=== PATIENT | female | born 1935 | race Two or more races ===

== ENCOUNTER 2016-06-07 19:13 | Emergency (ER) | payer MEDICARE, OTHER ==
[~2016-06-07] VITALS: Ht 165.1 cm; Wt 57.1 kg
[~2016-06-07 19:13] MED LIST: D-ME118S6 PO; PRED20TA PO
[2016-06-07 19:33] VITALS: Ht 165.1 cm; Wt 57.1 kg
[2016-06-07 22:47] LABS: ADD SCAN DIFF NO
[2016-06-07 22:51] LABS: BASOPHIL # 0.1 10^3/ul (0.0-0.1); BASOPHILS % 0.7 % (0.0-2.0); EOSINOPHILS # 0.2 10^3/ul (0.0-0.5); EOSINOPHILS % 1.8 % (0.0-7.0); HEMATOCRIT 40.8 % (37.0-47.0); HEMOGLOBIN 13.6 g/dl (12.0-16.0); LYMPHOCYTES # 2.5 10^3/ul (0.8-2.9); LYMPHOCYTES % 28.7 % (15.0-51.0); MEAN CORPUSCULAR HEMOGLOBIN 30.8 pg (29.0-33.0); MEAN CORPUSCULAR HGB CONC 33.3 g/dl (32.0-37.0); MEAN CORPUSCULAR VOLUME 92.5 fl (82.0-101.0); MEAN PLATELET VOLUME 10.4 fl (7.4-10.4); MONOCYTE # 0.8 10^3/ul (0.3-0.9); MONOCYTES % 8.5 % (0.0-11.0); NEUTROPHIL # 5.3 10^3/ul (1.6-7.5); NEUTROPHILS % 59.8 % (39.0-77.0); PLATELET COUNT 231 10^3/UL (140-415); RED BLOOD COUNT 4.41 10^6/ul (4.20-5.40); RED CELL DISTRIBUTION WIDTH 12.5 % (11.5-14.5); WHITE BLOOD COUNT 8.8 10^3/ul (4.8-10.8)
[2016-06-07 22:54] LABS: ADD UMIC YES; URINE BILIRUBIN (Dip) NEGATIVE (NEGATIVE); URINE BLOOD (Dip) NEGATIVE (NEGATIVE); URINE COLOR LT. YELLOW (YELLOW); URINE GLUCOSE (Dip) NEGATIVE (NEGATIVE); URINE KETONES (Dip) NEGATIVE (NEGATIVE); URINE LEUKOCYTE ESTERASE (Dip) TRACE (NEGATIVE); URINE NITRITE (Dip) NEGATIVE (NEGATIVE); URINE TOTAL PROTEIN (Dip) NEGATIVE (NEGATIVE); URINE UROBILINOGEN (Dip) 0.2 E.U./dL (0.1-1.0)
--- NOTE | 2016-06-07 22:59 | RADRPT ---
PROCEDURE: XR Chest. CLINICAL INDICATION: Cough. TECHNIQUE: Portable AP upright view of the chest was obtained. COMPARISON: 06/20/2015 FINDINGS: The cardiomediastinal silhouette is within upper normal limits. Calcifications of the right lower h emithorax are again noted possibly chronic granulomatous disease plaques, no acute infiltrate is pre sent. There is no evidence for pleural effusion, pneumothorax or pulmonary vascular congestion. De mineralization is again noted without evidence of acute osseous abnormality. Calcification is again visible within the aortic arch. RPTAT:HJJR IMPRESSION: 1. Stable calcifications of the right lower lobe region possibly chronic granulomatous disease or c alcified pleural plaques. 2. No evidence of pneumonia or new intrathoracic abnormality, the appearance of the chest unchanged from 06/20/2015 when allowing for technical differences. 3. Aortic atherosclerosis is present. Physician August Date Time Electronically viewed and signed by Physician August on 06/07/2016 22:59 JR/
[2016-06-07 23:03] LABS: SQUAMOUS EPITHELIAL CELL,UR FEW; URINE RBCS 0-2 /HPF (0)
[2016-06-07] MEDS ORDERED: ALBUTEROL 0.5% (NEB) 2.5 MG/0.5 ML AMP NEB ONE (23:07)
[2016-06-07 23:08] LABS: ALBUMIN 4.1 g/dl (3.3-4.9); POTASSIUM 4.1 mmol/L (3.5-5.1)
[2016-06-07] MEDS ORDERED: METHYLPREDNISOLONE 125 MG INJ IV ONE (23:08)
[2016-06-07] MEDS ORDERED: IPRATROPIUM (NEB) 0.5 MG/2.5 ML AMP NEB ONE (23:08)
[2016-06-07 23:11] LABS: ALBUMIN/GLOBULIN RATIO 0.95; BILIRUBIN,INDIRECT 0.1 mg/dl (0-1.1); BILIRUBIN,TOTAL 0.1 mg/dl (0.2-1.3); CALCIUM 9.5 mg/dl (8.4-10.2); CREATININE 0.62 mg/dl (0.44-1.00); TOTAL PROTEIN 8.4 g/dl (6.1-8.1)
[2016-06-07] MEDS ORDERED: KETOROLAC 15 MG INJ IV STA (23:49)
[2016-06-08 00:03] VITALS: BP 149/73; PULSE 81; RESP 16
[2016-06-08] MEDS ORDERED: ALBU18HF INHALATION (00:07)
[2016-06-08] MEDS ORDERED: AZIT250T94 PO (00:07)
[2016-06-08] MEDS ORDERED: PRED20TA PO (00:07)
--- NOTE | 2016-06-08 00:17 | ERD ---
ER Documentation Chief Complaint Date/Time DATE: 06/08/16 TIME: 00:16 Chief Complaint LEFT UPPER BACK PAIN X 1 WEEK WITH COUGH AND CHEST WALL PAIN WITH INSPIRATI HPI This is an 80-year-old female who comes in with left upper back pain with 1 week with cough. Patient is also been noted to be wheezing. No nausea no vomiting no fevers no chills. No other current complaints. Pain is mild in intensity. No exacerbating or remitting factors. No other current issues ROS All systems reviewed and are negative except as per history of present illness. Medications Home Meds Active Scripts Azithromycin* (Zithromax*) 250 Mg Tablet, 250 MG PO .ZPACK DIRECTED, #6 TAB TAKE 500 MG (2 TABS) THE FIRST DAY THEN 250 MG (1 TAB) DAYS 2-5 Prov:JORDAN ANGELES 06/08/16 Albuterol Sulfate* (Ventolin HFA*) 18 Gm Hfa.aer.ad, 2 PUFF INHALATION Q4H, #1 INHALER Prov:JORDAN ANGELES 06/08/16 Prednisone* (Prednisone*) 20 Mg Tab, 40 MG PO DAILY for 4 Days, TAB Prov:JORDAN ANGELES. 06/08/16 Discontinued Scripts Dextromethorphan Hb-Promethazine Hcl (Promethazine DM Syrup) 180 Ml Syrup, 5 ML PO Q6H Y for COUGH, #4 OZ Prov:MÓNICA BARRIGA DO 06/20/15 Prednisone* (Prednisone*) 20 Mg Tab, 40 MG PO DAILY for 4 Days, TAB Prov:MÓNICA BARRIGA DO 06/20/15 Allergies Allergies: Coded Allergies: No Known Allergy (Unverified , 06/07/16) PMhx/Soc Medical and Surgical Hx: pt denies Medical Hx, pt denies Surgical Hx History of Surgery: No Anesthesia Reaction: No Hx Neurological Disorder: No Hx Respiratory Disorders: No Hx Cardiac Disorders: No Hx Psychiatric Problems: No Hx Miscellaneous Medical Probl: No Hx Alcohol Use: No Hx Substance Use: No Hx Tobacco Use: No Smoking Status: Never smoker Physical Exam Vitals Vital Signs Date Time Temp Pulse Resp B/P Pulse Ox O2 Delivery O2 Flow Rate FiO2 06/08/16 00:03 81 16 149/73 98 Room Air 2/28/17 23:33 68 20 97 21 06/07/16 19:33 98.9 95 24 123/70 95 Physical Exam Const: [] Head: Atraumatic Eyes: Normal Conjunctiva ENT: Normal External Ears, Nose and Mouth. Neck: Full range of motion..~ No meningismus. Resp: Clear to auscultation bilaterally Cardio: Regular rate and rhythm, no murmurs Abd: Soft, non tender, non distended. Normal bowel sounds Skin: No petechiae or rashes Back: No midline or flank tenderness Ext: No cyanosis, or edema Neur: Awake and alert Psych: Normal Mood and Affect Result Diagram: 06/07/16219906/07/162199 Results 24 hrs Laboratory Tests Test 06/07/16 22:00 06/07/16 22:15 Alanine Aminotransferase (ALT/SGPT) 24IU/L Albumin 4.1g/dl Albumin/Globulin Ratio 0.95 Alkaline Phosphatase 119IU/L Anion Gap 16 Aspartate Amino Transf (AST/SGOT) 32IU/L Basophils # 0.110^3/ul Basophils % 0.7% Blood Urea Nitrogen 13mg/dl Calcium Level 9.5mg/dl Carbon Dioxide Level 29mmol/L Chloride Level 103mmol/L Creatinine 0.62mg/dl Direct Bilirubin 0.00mg/dl Eosinophils # 0.210^3/ul Eosinophils % 1.8% Globulin 4.30g/dl Glucose Level 92mg/dl Hematocrit 40.8% Hemoglobin 13.6g/dl Indirect Bilirubin 0.1mg/dl Lymphocytes # 2.510^3/ul Lymphocytes % 28.7% Mean Corpuscular Hemoglobin 30.8pg Mean Corpuscular Hemoglobin Concent 33.3g/dl Mean Corpuscular Volume 92.5fl Mean Platelet Volume 10.4fl Monocytes # 0.810^3/ul Monocytes % 8.5% Neutrophils # 5.310^3/ul Neutrophils % 59.8% Nucleated Red Blood Cells # 0.010^3/ul Nucleated Red Blood Cells % 0.0/100WBC Platelet Count 66416^3/UL Potassium Level 4.1mmol/L Red Blood Count 4.4110^6/ul Red Cell Distribution Width 12.5% Sodium Level 144mmol/L Total Bilirubin 0.1mg/dl Total Protein 8.4g/dl White Blood Count 8.810^3/ul Urine Bilirubin NEGATIVE Urine Clarity CLEAR Urine Color LT. YELLOW Urine Glucose NEGATIVE% Urine Hemoglobin NEGATIVE Urine Ketones NEGATIVE Urine Leukocyte Esterase TRACE Urine Microscopic RBC 0-2/HPF Urine Microscopic WBC 0-2/HPF Urine Nitrite NEGATIVE Urine Specific [address] <=1.005 Urine Squamous Epithelial Cells FEW Urine Total Protein NEGATIVE Urine Urobilinogen 0.2 E.U./dL Urine pH 5.5 Current Medications Medications (Trade) Dose Ordered Sig/Gerald Route PRN Reason Start Time Stop Time Status Last Admin Dose Admin Albuterol (Proventil 0.5% (Neb)) 5 mg ONCE ONCE NEB 06/07/16 23:07 06/07/16 23:08 DC 06/07/16 23:33 Ipratropium [place] (Atrovent 0.02% (Neb)) 0.5 mg ONCE ONCE NEB 06/07/16 23:08 06/07/16 23:09 DC 06/07/16 23:33 Methylprednisolone Sodium Succinate (Solu-Medrol) 125 mg ONCE ONCE IV 06/07/16 23:08 06/07/16 23:09 DC 06/07/16 23:13 Ketorolac Tromethamine (Toradol) 15 mg ONCE STAT IV 06/07/16 23:49 06/07/16 23:50 DC 06/07/16 23:54 Procedures/MDM Chest X-ray 1V Interpreted by me: Soft Tissue: No acute abnormalities Bones: No acute abnormalities Mediastinum/Cardiac Silhouette/Lungs: [No acute abnormalities] Patient's respiratory status has stabilized while in the department and is appropriate for outpatient work up. Exam and work up not consistent w/ impending respiratory failure or cardiovascular collapse. Departure Diagnosis: Primary Impression: Asthmatic bronchitis with acute exacerbation Condition: Stable Patient Instructions: Bronchitis With Wheezing (Adult) JORDAN ANGELES Jun 08, 2016 00:17
== END 2016-06-08 00:13 | disposition home or self-care (01) ==
LOC: E/R 19:13
DX: J45.901 Unspecified asthma with (acute) exacerbation (principal)
CPT/HCPCS: 71010; 80053; 81001; 85025; 94664; 96374; 96375; 99284; J1885; J2930; 81003

== ENCOUNTER 2016-09-10 16:08 | Emergency (ER) | payer MEDICARE, OTHER ==
[~2016-09-10] VITALS: Ht 157.5 cm; Wt 57.5 kg
[~2016-09-10 16:08] MED LIST changes: +ALBU18HF INHALATION; +AZIT250T94 PO; -D-ME118S6 PO
[2016-09-10 16:26] VITALS: Ht 157.5 cm; Wt 57.5 kg
[2016-09-10] MEDS ORDERED: D-ME473S18 PO (19:03)
[2016-09-10] MEDS ORDERED: ACET500C5 PO (19:03)
[2016-09-10] MEDS ORDERED: AZIT250T94 PO (19:03)
--- NOTE | 2016-09-10 19:11 | ERD ---
ER Documentation Chief Complaint Date/Time DATE: 09/10/16 TIME: 19:10 Chief Complaint cough HPI This 80-year-old female presents with cough for the last 2 weeks. Her doctor did a PPD by history may have had a positive. Chest x-ray result is pending. She is here because she complains of a cough with slight production. She denies hemoptysis night sweats, chest pain, additional symptoms. ROS All systems reviewed and are negative except as per history of present illness. Medications Home Meds Active Scripts Acetaminophen* (Tylophen*) 500 Mg Capsule, 1 CAP PO Q6H Y for PAIN AND OR ELEVATED TEMP, #15 CAP Prov:AMARILIS ABDUL MD 09/10/16 Azithromycin* (Zithromax*) 250 Mg Tablet, 250 MG PO .ZPACK DIRECTED, #6 TAB TAKE 500 MG (2 TABS) THE FIRST DAY THEN 250 MG (1 TAB) DAYS 2-5 Prov:AMARILIS ABDUL MD 09/10/16 Dextromethorphan Hb-Promethazine Hcl (Promethazine DM Syrup) 473 Ml Syrup, 5 ML PO Q6H Y for COUGH, #4 OZ Prov:AMARILIS ABDUL MD 09/10/16 Azithromycin* (Zithromax*) 250 Mg Tablet, 250 MG PO .ZPACK DIRECTED, #6 TAB TAKE 500 MG (2 TABS) THE FIRST DAY THEN 250 MG (1 TAB) DAYS 2-5 Prov:JORDAN ANGELES 06/08/16 Albuterol Sulfate* (Ventolin HFA*) 18 Gm Hfa.aer.ad, 2 PUFF INHALATION Q4H, #1 INHALER Prov:JORDAN ANGELES 06/08/16 Prednisone* (Prednisone*) 20 Mg Tab, 40 MG PO DAILY for 4 Days, TAB Prov:JORDAN ANGELES 06/08/16 Allergies Allergies: Coded Allergies: No Known Allergy (Unverified , 06/07/16) PMhx/Soc Medical and Surgical Hx: pt denies Medical Hx, pt denies Surgical Hx History of Surgery: No Anesthesia Reaction: No Hx Neurological Disorder: No Hx Respiratory Disorders: No Hx Cardiac Disorders: No Hx Psychiatric Problems: No Hx Miscellaneous Medical Probl: No Hx Alcohol Use: No Hx Substance Use: No Hx Tobacco Use: No Smoking Status: Never smoker Physical Exam Vitals Vital Signs Date Time Temp Pulse Resp B/P Pulse Ox O2 Delivery O2 Flow Rate FiO2 09/10/16 16:26 99.7 83 18 121/66 96 Physical Exam Const: [] Alert, not ill-appearing. Head: Atraumatic Eyes: Normal Conjunctiva ENT: Normal External Ears, Nose and Mouth. Neck: Full range of motion..~ No meningismus. Resp: Clear to auscultation bilaterally Cardio: Regular rate and rhythm, no murmurs Abd: Soft, non tender, non distended. Normal bowel sounds Skin: No petechiae or rashes Back: No midline or flank tenderness Ext: No cyanosis, or edema Neur: Awake and alert Psych: Normal Mood and Affect Procedures/MDM Chest X-ray 1V Interpreted by me: Soft Tissue: No acute abnormalities Bones: No acute abnormalities Mediastinum/Cardiac Silhouette/Lungs: [No acute abnormalities]. Impression- normal 1 view chest x-ray Patient presents with a cough with x-ray with no signs of infiltrate, signs of hypoxemia, respiratory distress or active tuberculosis. Patient was treated with Zithromax, promethazine and further observation at home. The patient was stable with no new complaints during the ER course. Clinically, there is no current evidence to suggest meningitis, sepsis, acute abdomen, pneumonia, acute coronary syndrome, pulmonary embolism, or any other emergent condition appearing to require further evaluation or hospitalization. The patient should certainly return for any new or worsening symptoms per the aftercare instructions. They should otherwise follow-up with her primary care doctor for reevaluation this week. Departure Diagnosis: Primary Impression: Cough Condition: Stable Patient Instructions: Acute Bronchitis Additional Instructions: X-ray normal. Cheque otro vez con gomes doctor primario en el proximo bond or regresa para mas o nueva simptomas. AMARILIS ABDUL MD Sep 10, 2016 19:11
--- NOTE | 2016-09-10 20:18 | RADRPT ---
PROCEDURE: XR Chest. CLINICAL INDICATION: Cough. TECHNIQUE: Portable AP upright view of the chest was obtained. COMPARISON: 06/07/2016 FINDINGS: The cardiomediastinal silhouette is within normal limits. The lungs are clear of acute infiltrates. Basilar calcifications in the right lower lobe are less conspicuous than previously. There is darrian e flattening of the diaphragm which cannot exclude emphysema. There is no evidence for pleural effu trini, pneumothorax or pulmonary vascular congestion. The osseous structures are intact with no evid ence for acute abnormality. Calcification of the aorta is demonstrated. RPTAT:HJJR IMPRESSION: 1. Mild flattening of the diaphragm unable to exclude emphysema. 2. Right lower lobe calcifications less conspicuous on the prior study possibly chronic granulomato us disease or pleural plaques. 3. No evidence of pulmonary infiltrate. Physician August Date Time Electronically viewed and signed by Physician August on 09/10/2016 20:18 /
== END 2016-09-10 19:27 | disposition home or self-care (01) ==
LOC: FTE 16:08
DX: R05 Cough (principal)
CPT/HCPCS: 71010

== ENCOUNTER 2016-11-06 11:08 | Emergency (ER) | payer MEDICARE, OTHER ==
[~2016-11-06] VITALS: Ht 160 cm; Wt 78.9 kg
[~2016-11-06 11:08] MED LIST changes: +ACET500C5 PO; +D-ME473S18 PO
[2016-11-06 11:11] VITALS: Ht 160 cm; Wt 78.9 kg
[2016-11-06] MEDS ORDERED: SOD CHLORIDE 0.9% 1,000 ML IV STA (12:12)
[2016-11-06] MEDS ORDERED: morphine 2 MG INJ IV STA (12:12)
[2016-11-06] MEDS ORDERED: ONDANSETRON 4 MG INJ IV STA (12:12)
[2016-11-06 12:42] LABS: BASOPHILS % 0.4 % (0.0-2.0); EOSINOPHILS % 0.1 % (0.0-7.0); HEMATOCRIT 40.5 % (37.0-47.0); LYMPHOCYTES # 1.7 10^3/ul (0.8-2.9); LYMPHOCYTES % 16.2 % (15.0-51.0); MEAN CORPUSCULAR HEMOGLOBIN 31.3 pg (29.0-33.0); MEAN CORPUSCULAR HGB CONC 34.6 g/dl (32.0-37.0); MEAN CORPUSCULAR VOLUME 90.4 fl (82.0-101.0); MEAN PLATELET VOLUME 10.7 fl (7.4-10.4); MONOCYTE # 0.7 10^3/ul (0.3-0.9); MONOCYTES % 6.9 % (0.0-11.0); NEUTROPHILS % 75.9 % (39.0-77.0); PLATELET COUNT 200 10^3/UL (140-415); RED BLOOD COUNT 4.48 10^6/ul (4.20-5.40); RED CELL DISTRIBUTION WIDTH 12.5 % (11.5-14.5); WHITE BLOOD COUNT 10.5 10^3/ul (4.8-10.8)
--- NOTE | 2016-11-06 12:49 | RADRPT ---
PROCEDURE: XR Chest. CLINICAL INDICATION: Shortness of breath. TECHNIQUE: A single portable view of the chest was obtained. COMPARISON: 09/10/2016 FINDINGS: The aorta is tortuous and atherosclerotic. The cardiomediastinal silhouette is otherwise within nor mal limits. The lungs and pleural spaces are clear. The soft tissues and osseous structures demons trate benign age related senescent changes. IMPRESSION: No acute cardiopulmonary disease. RPTAT: HPNM Physician Naz Date Time Electronically viewed and signed by Patricio Sky Physician on 11/06/2016 12:49 /
[2016-11-06 12:56] LABS: INR 0.93; PARTIAL THROMBOPLASTIN TIME 29.3 Sec (25.0-35.0); PROTIME 12.5 Sec (12.2-14.2)
[2016-11-06 13:20] VITALS: TEMP 98.3
[2016-11-06 13:53] LABS: ALANINE AMINOTRANSFERASE 26 IU/L (13-69); ALBUMIN 4.5 g/dl (3.3-4.9); ALBUMIN/GLOBULIN RATIO 1.28; ALKALINE PHOSPHATASE 79 IU/L (42-121); AMYLASE 79 U/L (11-123); ANION GAP 19 (8-16); ASPARTATE AMINO TRANSFERASE 25 IU/L (15-46); BILIRUBIN,INDIRECT 0.2 mg/dl (0-1.1); BILIRUBIN,TOTAL 0.2 mg/dl (0.2-1.3); BLOOD UREA NITROGEN 11 mg/dl (7-20); CALCIUM 9.6 mg/dl (8.4-10.2); CARBON DIOXIDE 26 mmol/L (21-31); CHLORIDE 101 mmol/L (97-110); CREATININE 0.77 mg/dl (0.44-1.00); GLUCOSE 101 mg/dl (70-220); SODIUM 142 mmol/L (135-144)
[2016-11-06 14:02] LABS: TROPONIN-I < 0.012 ng/ml (0.00-0.12)
[2016-11-06] MEDS ORDERED: SOD CHLORIDE 0.9% 100 ML ONE (14:12)
[2016-11-06] MEDS ORDERED: IOHEXOL 300MG/ML 150 ML BTL ONE (14:12)
--- NOTE | 2016-11-06 14:38 | RADRPT ---
PROCEDURE: CT abdomen and pelvis with intravenous contrast. CLINICAL INDICATION: Abdominal Pain fever. Diarrhea. TECHNIQUE: Following intravenous contrast, spiral CT of the abdomen pelvis was performed and is re constructed at 2.5 mm contiguous axial intervals from the dome of the diaphragm to the inferior pubi c rami. Computer reformatted coronal and sagittal images are included. CT D I 7 millicurie Dose the 352 millicurie per centimeter COMPARISON: None. FINDINGS: Lung bases are clear of any infiltrate or mass. There is no effusion. The liver is of normal size, contour and attenuation with no solid mass or intrahepatic ductal dilat ation. There is a 5 mm cyst in the right lobe of the liver. No gallstones are present. No splenic, adrenal or pancreatic abnormalities present. Kidneys excrete contrast symmetrically. No hydronephrosis, calculus or solid masses present. 1 cm p arenchymal cyst is seen in the lower pole of the right kidney. Ureters are of normal course and phoebe iber with no stone. No bladder mass or stone is present. Uterus and ovaries are normal. No bowel mass or obstruction is seen. The appendix is normal. There is no phlegmon or pneumoperito neum. There is a small to moderate volume of pelvic ascites. No aneurysm is detected. There are dense vascular calcifications. There is no adenopathy. The osseous structures are intact. IMPRESSION: No evidence of urolithiasis, obstructive uropathy, diverticulitis or appendicitis. Small to moderate volume pelvic ascites. This is of unknown etiology. Hepatic cyst. Right renal cyst. Vascular calcifications. .Diego Zhao MD, Date Time Electronically viewed and signed by .Diego Zhao MD, MD on 11/06/2016 14:38 .A/
--- NOTE | 2016-11-06 14:43 | ERD ---
ER Documentation Chief Complaint Date/Time DATE: 11/06/16 TIME: 14:37 Chief Complaint REPORTED FEVER LAST NIGHT, TODAY ALSO DIARRHEA HPI This is a very pleasant 81-year-old female, [place]-speaking, that presents to the emergency department complaining of generalized abdominal cramping, loose watery stools and a tactile fever that began roughly 12 hours prior to arrival. The patient is not currently on antibiotics. She did take Tylenol at the onset of the fever which was 12 hours prior to arrival. Patient not had any recent travel or hospitalizations. The patient denies any chest pain or pressure that radiates the neck arm back or jaw. Patient has not had any frequency urgency or dysuria. She denies any myalgias or weakness. She denies a headache or changes in vision. She has no shortness of breath at rest or exertion. She indicates she has roughly 2 episodes of loose watery stools yesterday evening and once just prior to arrival. She denies any hemoptysis hematemesis or melanotic stools ROS All systems reviewed and are negative except as per history of present illness. Medications Home Meds Active Scripts Ciprofloxacin Hcl* (Ciprofloxacin Hcl*) 500 Mg Tablet, 500 MG PO BID for 7 Days , TAB Prov:SAM PALOMARES 11/06/16 Acetaminophen* (Tylophen*) 500 Mg Capsule, 1 CAP PO Q6H Y for PAIN AND OR ELEVATED TEMP, #15 CAP Prov:AMARILIS ABDUL MD 09/10/16 Discontinued Scripts Azithromycin* (Zithromax*) 250 Mg Tablet, 250 MG PO .ZPACK DIRECTED, #6 TAB TAKE 500 MG (2 TABS) THE FIRST DAY THEN 250 MG (1 TAB) DAYS 2-5 Prov:AMARILIS ABDUL MD 09/10/16 Dextromethorphan Hb-Promethazine Hcl (Promethazine DM Syrup) 473 Ml Syrup, 5 ML PO Q6H Y for COUGH, #4 OZ Prov:AMARILIS ABDUL MD 09/10/16 Azithromycin* (Zithromax*) 250 Mg Tablet, 250 MG PO .ZPACK DIRECTED, #6 TAB TAKE 500 MG (2 TABS) THE FIRST DAY THEN 250 MG (1 TAB) DAYS 2-5 Prov:JORDAN ANGELES 06/08/16 Albuterol Sulfate* (Ventolin HFA*) 18 Gm Hfa.aer.ad, 2 PUFF INHALATION Q4H, #1 INHALER Prov:JORDAN ANGELES 06/08/16 Prednisone* (Prednisone*) 20 Mg Tab, 40 MG PO DAILY for 4 Days, TAB Prov:JORDAN ANGELES 06/08/16 Allergies Allergies: Coded Allergies: No Known Allergy (Unverified , 11/06/16) PMhx/Soc History of Surgery: No Anesthesia Reaction: No Hx Neurological Disorder: No Hx Respiratory Disorders: No Hx Cardiac Disorders: No Hx Psychiatric Problems: No Hx Miscellaneous Medical Probl: No Hx Alcohol Use: No Hx Substance Use: No Hx Tobacco Use: No Smoking Status: Never smoker Physical Exam Vitals Vital Signs Date Time Temp Pulse Resp B/P Pulse Ox O2 Delivery O2 Flow Rate FiO2 11/06/16 13:20 98.3 75 17 117/73 96 Room Air 11/06/16 11:11 100.7 90 18 114/53 96 Physical Exam Constitutional:Well-developed. Well-nourished. HEENT:Normocephalic. Atraumatic.Pupils were equal round reactive to light. Dry mucous membranes.No tonsillar exudates. Neck: No nuchal rigidity. No lymphadenopathy. No posterior cervical spine tenderness or step-offs. Respiratory: Not using accessory muscles of respiration.Lungs were clear to auscultation bilaterally. No rhonchi. No rales. No wheezing. Cardiovascular: Regular rate regular rhythm.No murmurs. No rubs were appreciated.S1, S2 normal. Distal pulses are palpable 2+ bilaterally. GI: Abdomen was soft. Tenderness in the left lower quadrant. Non Distended. No pulsatile abdominal masses or bruits. No rebound. No guarding. Bowel sounds were present and normal. Muscle skeletal: Full range of motion of both the upper and lower extremities bilaterally.Normal muscle tone.No assymetrical calf tenderness or swelling. Skin: No petechia, no purpura. No lesions on the palms or the soles of the feet. No maculopapular rash. NEURO: Patient was alert, awake, orientated x3.No facial droop. Gait observed and normal with no ataxia.Speech had regular rate and rhythm. No focal neurological deficits. Result Diagram: 11/06/16 1225 11/06/16 1225 Results 24 hrs Laboratory Tests Test 11/06/16 12:25 11/06/16 14:30 White Blood Count 10.510^3/ul Red Blood Count 4.4810^6/ul Hemoglobin 14.0g/dl Hematocrit 40.5% Mean Corpuscular Volume 90.4fl Mean Corpuscular Hemoglobin 31.3pg Mean Corpuscular Hemoglobin Concent 34.6g/dl Red Cell Distribution Width 12.5% Platelet Count 13898^3/UL Mean Platelet Volume 10.7fl Neutrophils % 75.9% Lymphocytes % 16.2% Monocytes % 6.9% Eosinophils % 0.1% Basophils % 0.4% Nucleated Red Blood Cells % 0.0/100WBC Neutrophils # 8.010^3/ul Lymphocytes # 1.710^3/ul Monocytes # 0.710^3/ul Eosinophils # 0.010^3/ul Basophils # 0.010^3/ul Nucleated Red Blood Cells # 0.010^3/ul Prothrombin Time 12.5Sec Prothrombin Time Ratio 1.0 INR International Normalized Ratio 0.93 Activated Partial Thromboplast Time 29.3Sec Sodium Level 142mmol/L Potassium Level 4.0mmol/L Chloride Level 101mmol/L Carbon Dioxide Level 26mmol/L Anion Gap 19 Blood Urea Nitrogen 11mg/dl Creatinine 0.77mg/dl Glucose Level 101mg/dl Calcium Level 9.6mg/dl Total Bilirubin 0.2mg/dl Direct Bilirubin 0.00mg/dl Indirect Bilirubin 0.2mg/dl Aspartate Amino Transf (AST/SGOT) 25IU/L Alanine Aminotransferase (ALT/SGPT) 26IU/L Alkaline Phosphatase 79IU/L Troponin I < 0.012ng/ml Total Protein 8.0g/dl Albumin 4.5g/dl Globulin 3.50g/dl Albumin/Globulin Ratio 1.28 Amylase Level 79U/L Lipase 113U/L Urine Color STRAW Urine Clarity CLEAR Urine pH 5.0 Urine Specific [place] 1.019 Urine Ketones NEGATIVEmg/dL Urine Nitrite NEGATIVEmg/dL Urine Bilirubin NEGATIVEmg/dL Urine Urobilinogen NEGATIVEmg/dL Urine Leukocyte Esterase TRACELeu/ul Urine Microscopic RBC 0/HPF Urine Microscopic WBC 2/HPF Urine Hemoglobin 1+mg/dL Urine Glucose NEGATIVEmg/dL Urine Total Protein NEGATIVEmg/dl Current Medications Medications (Trade) Dose Ordered Sig/Gerald Route PRN Reason Start Time Stop Time Status Last Admin Dose Admin Sodium Chloride (NS) 1,000 ml @ 1,000 mls/hr Q1H STAT IV 11/06/16 12:12 11/06/16 13:11 DC 11/06/16 12:27 Morphine Sulfate (morphine) 2 mg ONCE STAT IV 11/06/16 12:12 11/06/16 12:13 DC Ondansetron HCl (Zofran Inj) 4 mg ONCE STAT IV 11/06/16 12:12 11/06/16 12:13 DC 11/06/16 12:27 IV Flush 10 ml 10 ml STK-MED ONCE .ROUTE 11/06/16 14:12 11/06/16 14:13 DC Sodium Chloride (NS) 100 ml @ ud STK-MED ONCE .ROUTE 11/06/16 14:12 11/06/16 14:13 DC Iohexol (Omnipaque 300mg/ ml) 150 ml STK-MED ONCE .ROUTE 11/06/16 14:12 11/06/16 14:13 DC Procedures/MDM This is a very pleasant 81-year-old female that had presented to the emergency department with diarrhea and physical exam findings of mild clinical dehydration. This patient also presented to the emergency department with abdominal pain and was seen and evaluated by myself. My differential diagnosis included but was not limited to abdominal aortic aneurysm, appendicitis, pancreatitis, perforated peptic ulcer, perforated viscus, Boerhaave's syndrome or visceral pain such as diverticulitis, DKA, esophagitis, hepatitis or bowel obstruction. The patient was placed on a boat detailer, continuous pulse oximetry, and IV access was established by nursing staff. Patient received intravenous morphine and Zofran. The patient arrived she did have a low-grade fever of 100.7 however this was repeated and no antipyretics have been given and resolved. The patient received IV bolus of normal saline for the mild clinical dehydration. The patient has no risk factors for Clostridium difficile. I have however placed a C. difficile culture which is pending. 12 Lead EKG tracing ordered and reviewed by myself showed: Normal sinus rhythm of 73 bpm and no arrhythmia. [place] interval normal. QRS duration normal. No ST segment elevation No ST segment depression. No changes consistent with acute ischemia. Observation Note: Time: 4 hours Family Hx: No Hypertension Evaluation: Multiple exams showed improving symptoms and no evidence of peritoneal signs or severe dehydration. The patient received a liter bolus of normal saline. I did explain to the patient and her daughter was at bedside that the diarrhea likely was a viral etiology. They were very adamant though that they would prefer a prescription for antibiotics and given that the patient had mild leukocytes but no pyuria and possible early cystitis she was sent with a prescription of ciprofloxacin. The patient was discharged home in fair condition. They were instructed to return to the emergency department at any time if there was any worsening of their condition. The patient stated they would follow up with their PCP in the next 24-48 hours to initiate a suitable medication regimen under the care of their PCP as well as to allow their PCP to monitor any drug reactions. The patient was discharged home with prescriptions after they gave informed consent to the new medication. They were also fully informed by myself on the adverse effects and adverse drug interactions in order to provide adequate safeguards to prevent possible adverse reactions to medications. Departure Diagnosis: Primary Impression: Diarrhea Diarrhea type: unspecified type Qualified Code: R19.7 - Diarrhea, unspecified type Condition: SAM Friedman Nov 06, 2016 14:43
[2016-11-06 15:08] LABS: ADD UMIC YES; UR ASCORBIC ACID NEGATIVE (NEGATIVE); UR BILIRUBIN (Dip) NEGATIVE (NEGATIVE); UR BLOOD (Dip) 1+ mg/dL (NEGATIVE); UR CLARITY CLEAR (CLEAR); UR COLOR STRAW (YELLOW); UR GLUCOSE (Dip) NEGATIVE (NEGATIVE); UR KETONES (Dip) NEGATIVE (NEGATIVE); UR LEUKOCYTE ESTERASE (Dip) TRACE Leu/ul (NEGATIVE); UR NITRITE (Dip) NEGATIVE (NEGATIVE); UR RBC 0 /HPF (0-5); UR SPECIFIC GRAVITY (Dip) 1.019 (1.003-1.030); UR TOTAL PROTEIN (Dip) NEGATIVE (NEGATIVE); UR UROBILINOGEN (Dip) NEGATIVE (NEGATIVE)
[2016-11-06] MEDS ORDERED: CIPR500T4 PO (15:55)
[2016-11-06 16:15] VITALS: BP 116/78; PULSE 79; RESP 18
== END 2016-11-06 16:16 | disposition home or self-care (01) ==
LOC: E/R 11:08
DX: R19.7 Diarrhea, unspecified (principal); R10.84 Generalized abdominal pain
CPT/HCPCS: 36415; 71010; 74177; 80053; 81001; 82150; 83690; 84484; 85025; 85610; 85730; 87086; 93005; 96361; 96374; 99285; J2405; J7030; Q9967

== ENCOUNTER 2017-08-31 03:55 | Emergency (ER) | END 2017-08-31 06:13 | disposition home or self-care (01) ==

== ENCOUNTER 2018-03-30 12:56 | Inpatient (IN) | END 2018-04-02 18:57 | disposition home or self-care (01) | DRG 871 ==

== ENCOUNTER 2018-04-13 03:51 | Emergency (ER) | payer MEDICARE, OTHER ==
[~2018-04-13] VITALS: Wt 52.3 kg
[~2018-04-13 03:51] MED LIST changes: -ACET500C5 PO; -AZIT250T94 PO; +AZIT500T2 PO; +BUDE6HFA INHALATION; -D-ME473S18 PO; -PRED20TA PO
[2018-04-13] MEDS ORDERED: ALBUTEROL 0.083% (NEB) 2.5 MG/3 ML AMP NEB STA (04:48)
--- NOTE | 2018-04-13 04:53 | ERD ---
ER Documentation Chief Complaint Chief Complaint cough/congestion/headache x3 days HPI This is a 82-year-old female who is here for cough. The patient has had a cough for 2 days with runny nose, nasal congestion, excessive sneezing. She has not had any fever no nausea vomiting diarrhea no chest pain or shortness of breath. The patient has had a recent admission to the hospital here a few weeks ago for pneumonia. She says she got better once discharged and yet has had this respiratory illness start again the past 2 days. ROS All systems reviewed and are negative except as per history of present illness. Medications Home Meds Active Scripts Budesonide-Formoterol Fumarate* (Symbicort*) 160-4.5 Hfa.aer.ad, 2 PUFF INHALATION BID, #1 EACH Prov:CLAY CABRERA MD 04/02/18 Azithromycin* (Zithromax* Tri-Brandon) 500 Mg Tablet, 500 MG PO DAILY, #1 PACKET Prov:VIJAY AL 04/01/18 Reported Medications Albuterol Sulfate* (Ventolin HFA*) 18 Gm Hfa.aer.ad, 2 PUFF INHALATION Q4H PRN for WHEEZING AND SOB, #1 INHALER 03/30/18 Allergies Allergies: Coded Allergies: vancomycin (Verified Adverse Reaction, Intermediate, 03/30/18) PMhx/Soc History of Surgery: No Hx Neurological Disorder: No Hx Respiratory Disorders: No Hx Cardiac Disorders: No Hx Psychiatric Problems: No Hx Miscellaneous Medical Probl: No Hx Alcohol Use: No Hx Substance Use: No Hx Tobacco Use: No FmHx Family History: No coronary disease Physical Exam Vitals Vital Signs Date Temp Pulse Resp B/P (MAP) Pulse Ox O2 O2 Flow FiO2 Time Delivery Rate 04/13/18 77 18 97 21 05:06 04/13/18 98.2 80 16 130/60 96 Room Air 05:00 (83) 04/13/18 100.3 84 16 130/60 96 03:57 (83) Physical Exam C const: Well-developed, well-nourished Head: Atraumatic, normocephalic Eyes: Normal Conjunctiva, PERRLA, EOMI, normal sclera, no nystagmus ENT: Normal External Ears, excessive clear nasal drainage, moist mucus membranes. Neck: Full range of motion. No meningismus, no lymphadenopathy. Resp: Clear to auscultation bilaterally, no wheezing, rhonchi, rales Cardio: Regular rate and rhythm, no murmurs, S1 S2 present Abd: Soft, non tender x 4, non distended. Normal bowel sounds, no guarding or rebound, no pulsitile abdominal masses or bruits Skin: No petechiae or rashes, no ecchymosis , no maculopapular rash Back: No midline or flank tenderness Ext: No cyanosis, or edema, FROM x 4, normal inspection, neurovascularly intact x 4 Neur: Awake and alert, STR 5/5 x 4, sensation intact x 4, no focal findings, cerebellum intact Psych: Normal Mood and Affect Results 24 hrs Current Medications Medications Dose Sig/Gerald Start Time Status Last (Trade) Ordered Route PRN Stop Time Admin Dose Reason Admin Albuterol 7.5 mg ONCE STAT 04/13/18 DC 04/13/18 (Proventil NEB 04:48 04/13/18 05:06 0.083% (Neb)) 04:49 Procedures/MDM Ordering MD: JOE FAIRBANKS DO Location: E/R Room/Bed: PROCEDURE: XR Chest. CLINICAL INDICATION: Shortness of breath TECHNIQUE: Portable single view of the chest COMPARISON: CR CHEST 06/07/2016; CR CHEST 06/20/2015 FINDINGS: Lung volumes are reduced compared with prior. Ectatic and atherosclerotic aorta again seen. Mild interstitial prominence of the lungs but no definite acute infiltrate, pleural effusion, or overt congestive heart failure. Degenerative change of the spine and shoulders.. IMPRESSION: Shallower lung inflation. Otherwise no interval change.. RPTAT: [facility] Physician Cuco Date Time Electronically viewed and signed by Agustina Mora Physician on 04/13/2018 05:45 LE/ CC: JOE FAIRBANKS DO [id number] Influenza is negative. Chest x-ray is unremarkable for pneumonia. The patient's symptoms are more consistent with bronchitis/URI/viral illness. Will treat accordingly. She is feeling better after breathing treatment. Patient feels much better at this time, and vital signs are normal, symptoms have improved. I did give strict instructions to return to the ED if symptoms continue or worsen, patient will otherwise follow-up with primary care physician. Patient understood instructions and agreed to plan. Disclaimer: Inadvertent spelling and grammatical errors are likely due to EHR/dictation software use and do not reflect on the overall quality of patient care. Also, please note that the electronic time recorded on this note does not necessarily reflect the actual time of the patient encounter. Departure Diagnosis: Primary Impression: URI (upper respiratory infection) URI type: unspecified URI Qualified Codes: J06.9 - Acute upper respiratory infection, unspecified Additional Impression: Bronchitis Condition: Stable JOE FAIRBANKS DO Apr 13, 2018 04:53
[2018-04-13] MEDS ORDERED: PRED20TA PO (05:54)
[2018-04-13] MEDS ORDERED: AZIT250T PO (05:54)
[2018-04-13] MEDS ORDERED: ALBU8.5H8 INH (05:54)
[2018-04-13 06:14] VITALS: BP 107/72; PULSE 82; RESP 16
== END 2018-04-13 06:21 | disposition home or self-care (01) ==
LOC: E/R 03:51
DX: J06.9 Acute upper respiratory infection, unspecified (principal); J40 Bronchitis, not specified as acute or chronic; R40.2252 Coma scale, best verbal response, oriented, at arrival to emergency department; R40.2362 Coma scale, best motor response, obeys commands, at arrival to emergency department; R40.2142 Coma scale, eyes open, spontaneous, at arrival to emergency department
CPT/HCPCS: 71045; 87400; 94664